=== PATIENT | female | born 1945 | race Caucasian/White ===

== ENCOUNTER → 2016-05-16 | Outpatient (CLI) | payer OTHER ==
[~2016-05-16] MED LIST: AMLO2.5T PO; ATOR-22 PO; ATR10 PO; BUPRTAB51 PO; CLON0.5T3 PO; DESV50TA2 PO; DXY100 PO; FERR1TAB23 PO; FERR325T5 PO; HYDR-3126 PO; LCTX PO; LEVO75TA PO; NXM/40 PO
--- NOTE | 2016-05-16 11:14 | DIAGNOSTIC IMAGING REPORT ---
GI SERIES W/O KUB CLINICAL HISTORY: Hiatal hernia. COMPARISON STUDY: None FLUOROSCOPY TIME: 1.7 minutes. FINDINGS: 24 fluoroscopic images were obtained and demonstrate a large sliding hiatal hernia. The gastric cardia, fundus and proximal body of the stomach are located above the diaphragm. There was mild esophageal dysmotility. No esophageal mass or stricture was identified. No reflux was elicited. Gastric fold pattern is grossly normal. Duodenum was normal. IMPRESSION: 1. Large sliding hiatal hernia with partially intrathoracic stomach. 2. Mild esophageal dysmotility. Electronically signed by: David Cosme M.D. 05/16/2016 11:13 AM Dictated Date/Time: 05/16/2016 11:07 AM
== END | disposition home or self-care (01) ==
LOC: C.RAD 10:25
PROVIDERS: ATTEND Internal Medicine Gastroenterology
DX: C18.3 Malignant neoplasm of hepatic flexure (principal); K44.9 Diaphragmatic hernia without obstruction or gangrene

== ENCOUNTER 2016-06-14 16:42 | Inpatient (IN) | payer OTHER ==
[~2016-06-14] VITALS: Ht 157.5 cm; Wt 88.2 kg
[2016-06-14] MEDS ORDERED: AMPICILLIN/SULBACTAM SOD INJ 3,000 MG in SODIUM CHLORIDE 0.9% 100ML 100 ML IV ONE (17:00)
--- NOTE | 2016-06-14 17:13 | EMERGENCY ROOM VISIT NOTE ---
History Report prepared by Tiana: Javed Gerber Under the Supervision of: Dr. Harrison Wood M.D. First contact with patient: 16:50 Chief Complaint: SWELLING TO EXTREMITY Stated Complaint: RT FOREARM CELLULITIS DUE TO DOG BITE History of Present Illness The patient is a 70 year old female who presents to the Emergency Room with complaints of a worsening right arm infection beginning yesterday. She states that her symptoms began immediately after she was bit by her daughter's dog. She notes that the dog was known to the patient, and was vaccinated. The patient denies any fevers or chills. She also complains of a headache. She states that she was seen at an acute care facility following the bite, and was place on Doxycycline. The patient's tetanus is up to date, and she received an injection yesterday. The patient's daughter notes that the infection has already been draining some pus. She also explains that the patient is unable to take Augmentin. The patient has a history of recently diagnosed colon cancer, and is scheduled for a bowel resection in about a month. Source of History: patient Onset: yesterday Position: arm (right) Quality: other (infection) Timing: worsening Associated Symptoms: + headache, No fevers Review of Systems See HPI for pertinent positives & negatives. A total of 10 systems reviewed and were otherwise negative. Past Medical & Surgical Medical Problems: (1) Anxiety (2) Cellulitis (3) Colon cancer (4) Depression (5) Dog bite (6) Hiatal hernia (7) HLD (hyperlipidemia) (8) HTN (hypertension) (9) Hypothyroid (10) LAKIA (iron deficiency anemia) (11) LUIZA on CPAP Surgical Problems: (1) H/O colonoscopy (2) H/O: hysterectomy (3) History of appendectomy (4) History of esophagogastroduodenoscopy (EGD) (5) History of repair of hiatal hernia Family History No pertinent family history stated. Social History Smoking Status: Never Smoker Current/Historical Medications Scheduled Amlodipine (Norvasc), 2.5 MG PO DAILY Atorvastatin (Lipitor), 20 MG PO DAILY Bupropion (Wellbutrin-Xl), 300 MG PO DAILY Clonazepam (Klonopin), 0.5-1 TAB PO QPM Desvenlafaxine Succinate (Pristiq), 50 MG PO DAILY Esomeprazole Magnesium (Nexium), 40 MG PO DAILY Ferrous Sulfate (Ferrous Sulfate), 325 MG PO DAILY Levothyroxine Sodium (Synthroid), 75 MCG PO DAILY Scheduled PRN Hydroxyzine Hcl (Atarax), 25 MG PO HS PRN for Itching Allergies Coded Allergies: Sulfa Antibiotics (Unverified Allergy, Severe, RASH, 06/14/16) Physical Exam Vital Signs Date Time Temp Pulse Resp B/P Pulse Ox O2 Delivery O2 Flow Rate FiO2 06/14/16 16:44 36.8 95 18 130/64 98 Physical Exam GENERAL: Patient is in no acute distress. HEENT: No acute trauma, normocephalic atraumatic, mucous membranes moist, no nasal congestion, no scleral icterus. NECK: No stridor, no adenopathy, no meningismus, trachea is midline. LUNGS: Clear to auscultation bilaterally, no wheeze, no rhonchi, breath sounds equal. HEART: 2/6 systolic murmur with a regular rate and rhythm. ABDOMEN: Soft, nontender, bowel sounds positive, no hernias, no peritonitis. EXTREMITIES: Cellulitis in the area of the right medial forearm extending from the elbow the wrist. Erythema and warmth to the area. Puncture wound to the proximal forearm consistent with a bite. No drainage. NEUROLOGIC: Oriented x 3, no acute motor or sensory deficits, no focal weakness. SKIN: No rash, no jaundice, no diaphoresis. Medical Decision & Procedures ER Provider Diagnostic Interpretation: X ray results and stated below per my interpretation and radiologist interpretation. Other radiology results and stated below per my review and radiologist interpretation: ULTRASOUND RIGHT UPPER EXTREMITY NONVASCULAR IMPRESSION: Soft tissue edema is present in the forearm. No organized fluid collection is seen to indicate abscess. Electronically signed by: Harrison Steel M.D. RIGHT FOREARM 2 VIEWS FINDINGS: AP and lateral views of the right forearm are obtained. No prior studies are available for comparison at the time of dictation. The skeletal structures are osteopenic. No fracture is seen. The wrist and elbow joints are grossly maintained. Diffuse soft tissue edema is present throughout the forearm. No radiodense foreign body is identified. IMPRESSION: 1. No acute bony abnormality is identified in the right forearm. 2. Diffuse soft tissue edema. No radiodense foreign body is identified as clinically queried. Electronically signed by: Harrison Vilbert, M.D. Laboratory Results 06/14/16 17:10 Red Blood Count 4.26, Mean Corpuscular Volume 79.6, Mean Corpuscular Hemoglobin 24.6, Mean Corpuscular Hemoglobin Concent 31.0, Mean Platelet Volume 9.4, Neutrophils (%) (Auto) 66.4, Lymphocytes (%) (Auto) 19.2, Monocytes (%) (Auto) 13.5, Eosinophils (%) (Auto) 0.5, Basophils (%) (Auto) 0.2, Neutrophils # (Auto ) 6.14, Lymphocytes # (Auto) 1.78, Monocytes # (Auto) 1.25, Eosinophils # (Auto ) 0.05, Basophils # (Auto) 0.02 06/14/16 17:10 Test 06/14/16 17:10 White Blood Count 9.26 K/uL (4.8-10.8) Red Blood Count 4.26 M/uL (4.2-5.4) Hemoglobin 10.5 g/dL (12.0-16.0) Hematocrit 33.9 % (37-47) Mean Corpuscular Volume 79.6 fL (80-100) Mean Corpuscular Hemoglobin 24.6 pg (25-34) Mean Corpuscular Hemoglobin Concent 31.0 g/dl (32-36) Platelet Count 309 K/uL (130-400) Mean Platelet Volume 9.4 fL (7.4-10.4) Neutrophils (%) (Auto) 66.4 % Lymphocytes (%) (Auto) 19.2 % Monocytes (%) (Auto) 13.5 % Eosinophils (%) (Auto) 0.5 % Basophils (%) (Auto) 0.2 % Neutrophils # (Auto) 6.14 K/uL (1.4-6.5) Lymphocytes # (Auto) 1.78 K/uL (1.2-3.4) Monocytes # (Auto) 1.25 K/uL (0.11-0.59) Eosinophils # (Auto) 0.05 K/uL (0-0.5) Basophils # (Auto) 0.02 K/uL (0-0.2) RDW Standard Deviation 65.9 fL (36.4-46.3) RDW Coefficient of Variation 22.6 % (11.5-14.5) Immature Granulocyte % (Auto) 0.2 % Immature Granulocyte # (Auto) 0.02 K/uL (0.00-0.02) Polychromasia 1+ Anisocytosis PRESENT Ovalocytes 1+ Anion Gap 11.0 mmol/L (3-11) Est Creatinine Clear Calc Drug Dose 55.1 ml/min Estimated GFR () 66.4 Estimated GFR (Non- 57.3 BUN/Creatinine Ratio 14.8 (10-20) Calcium Level 9.3 mg/dl (8.5-10.1) Laboratory results reviewed by me. Medications Administered Medications (Trade) Dose Ordered Sig/Radha Route Start Time Stop Time Status Last Admin Dose Admin Ampicillin Sodium/ Sulbactam Sodium/ Sodium Chloride (Unasyn Inj/Nss 100ml) 108 ml @ 200 mls/hr ONE ONCE IV 06/14/16 17:00 06/14/16 17:32 DC 06/14/16 17:55 200 MLS/HR ED Course 1652: The patient was evaluated in room B7. A complete history and physical exam was performed. 1700: Ordered Ampicillin Sodium / Sulbactam Sodium 3000 mg / Sodium Chloride 108 ml @ 200 mls/hr IV. 1759: Upon reexamination the patient is resting comfortably. I discussed results and treatment plan with the patient. She verbalizes agreement and understanding. The patient will be evaluated for further management. Medical Decision The patient is a 70 year old female who presents to the ED with complaints of a worsening right arm infection. Differential diagnoses considered include failed outpatient treatment, cellulitis, abscess, neurovascular compromise, retained tooth, as well as other etiologies were considered. There is no leukocytosis. There is an anemia present, the patient has a history of the same. No significant electrolyte abnormality or kidney failure. Right forearm film does not show any evidence for retained foreign body, I see no bony fracture. Right upper extremity ultrasound shows no evidence for localized abscess. On exam, there was no neurovascular compromise. The patient has a right arm dog bite cellulitis that has worsened despite antibiotics started yesterday. The organism is likely Pasteurella. The patient received IV Unasyn. I talked to her about options. She cannot take oral Augmentin. The arm has worsened since yesterday, she has failed outpatient treatment. Admission/observation is warranted. I spoke to the patient and case management. The on-call hospitalist was consulted. Consults Time Called: 1757 Consulting Physician: Rosa Osman Returned Call: [phone] Discussed the patient's case. The patient will be evaluated for further management. Impression Primary Impression: Right arm cellulitis Additional Impressions: Failure of outpatient treatment Dog bite Scribe Attestation The scribe's documentation has been prepared under my direction and personally reviewed by me in its entirety. I confirm that the note above accurately reflects all work, treatment, procedures, and medical decision making performed by me. Departure Information Dispostion Being Evaluated By Hospitalist Referrals Jadon Hutson M.D. (PCP) Patient Instructions My [facility] Problem Qualifiers
[2016-06-14] MEDS ORDERED: ATOR-22 PO (17:28)
[2016-06-14] MEDS ORDERED: ATR10 PO (17:28)
[2016-06-14] MEDS ORDERED: CLON0.5T3 PO (17:28)
[2016-06-14] MEDS ORDERED: LEVO75TA PO (17:28)
[2016-06-14] MEDS ORDERED: AMLO2.5T PO (17:28)
[2016-06-14] MEDS ORDERED: BUPRTAB51 PO (17:28)
[2016-06-14] MEDS ORDERED: FERR1TAB23 PO (17:28)
[2016-06-14] MEDS ORDERED: DESV50TA2 PO (17:28)
[2016-06-14] MEDS ORDERED: NXM/40 PO (17:28)
[2016-06-14 17:35] LABS: BASO % 0.2 %; BASO ABS # 0.02 K/uL (0-0.2); EOS % 0.5 %; HEMATOCRIT 33.9 % (37-47); IG% 0.2 %; LYMPH % 19.2 %; LYMPH ABS # 1.78 K/uL (1.2-3.4); MEAN CELL VOLUME 79.6 fL (80-100); MEAN CORPUSCULAR HEMOGLOBIN 24.6 pg (25-34); MEAN PLATELET VOLUME 9.4 fL (7.4-10.4); MONO % 13.5 %; NEUT % 66.4 %; PLATELET COUNT 309 K/uL (130-400); RED BLOOD COUNT 4.26 M/uL (4.2-5.4); WHITE BLOOD COUNT 9.26 K/uL (4.8-10.8)
[2016-06-14 17:39] LABS: BUN/CREATININE RATIO 14.8 (10-20); CALCIUM 9.3 mg/dl (8.5-10.1); CREATININE 0.99 mg/dl (0.60-1.20); POTASSIUM 3.7 mmol/L (3.5-5.1)
[2016-06-14 18:00] LABS: ANISOCYTOSIS PRESENT; COMPLETE YES; OVALOCYTES 1+; POLYCHROMASIA 1+
[2016-06-14] MEDS ORDERED: ACETAMINOPHEN 325 MG TAB PO PRN (18:30)
[2016-06-14] MEDS ORDERED: ONDANSETRON INJ 2 MG/ML 2 ML VIAL IV PRN (18:30)
--- NOTE | 2016-06-14 18:37 | DIAGNOSTIC IMAGING REPORT ---
RIGHT FOREARM 2 VIEWS CLINICAL HISTORY: Foreign body assessment. FINDINGS: AP and lateral views of the right forearm are obtained. No prior studies are available for comparison at the time of dictation. The skeletal structures are osteopenic. No fracture is seen. The wrist and elbow joints are grossly maintained. Diffuse soft tissue edema is present throughout the forearm. No radiodense foreign body is identified. IMPRESSION: 1. No acute bony abnormality is identified in the right forearm. 2. Diffuse soft tissue edema. No radiodense foreign body is identified as clinically queried. Electronically signed by: Harrison Steel M.D. 06/14/2016 6:36 PM Dictated Date/Time: 06/14/2016 6:35 PM
[2016-06-14] MEDS ORDERED: HYDROXYZINE HCL PO PRN (18:45)
[2016-06-14] MEDS ORDERED: KETOROLAC TROMETHAMINE 15 MG/ML VIAL IV. PRN (18:45)
--- NOTE | 2016-06-14 18:49 | History and Physical ---
History & Physical Date & Time of Service: Jun 14, 2016 at 18:37 Chief Complaint: Rt Forearm Cellulitis Due To Dog Bite Primary Care Physician: Jadon Hutson M.D. History of Present Illness Source: patient, family, hospital records Patient seen and examined. 70 year old female with PMHx of Active Colon CA, HLD , HTN, LUIZA, Hypothyroidism, Anxiety and Depression presents to the ED complaining of cellulitis following a dog bite yesterday of the right forearm. Patient reports it is her daughters dog and he is up to date on all of his shots. She states that yesterday she went to Urgent Care and was started on Doxycycline because Augmentin give her nausea. She reports this morning that her forearm was now red from wrist to elbow. She reports there has been copious purulent discharge from the puncture site so she came to the ED for further evaluation. She denies fevers, chills, URI symptoms, chest pain, SOB, nausea, vomiting, diarrhea, dysuria, calf pain and edema. She denies history of Diabetes. Patient is scheduled for colon CA resection at [facility] on 06/30. In the ED VS are stable, there is no leukocytosis. Blood cultures are drawn and patient is started on Unasyn. She will be admitted for further workup and treatment. Past Medical/Surgical History Medical Problems: (1) Anxiety Status: Chronic (2) Colon cancer Status: Chronic (3) Depression Status: Chronic (4) Hiatal hernia Status: Chronic (5) HLD (hyperlipidemia) Status: Chronic (6) HTN (hypertension) Status: Chronic (7) Hypothyroid Status: Chronic (8) LAKIA (iron deficiency anemia) Status: Chronic (9) LUIZA on CPAP Status: Chronic Surgical Problems: (1) H/O colonoscopy Status: Chronic (2) H/O: hysterectomy Status: Chronic (3) History of appendectomy Status: Chronic (4) History of esophagogastroduodenoscopy (EGD) Status: Chronic (5) History of repair of hiatal hernia Status: Chronic Family History Patient reports no known family medical history. Social History Smoking Status: Never Smoker Alcohol Use: none Housing status: lives with family Occupational Status: retired Allergies Coded Allergies: Sulfa Antibiotics (Unverified Allergy, Severe, RASH, 06/14/16) Home Medications Scheduled Amlodipine (Norvasc), 2.5 MG PO DAILY Atorvastatin (Lipitor), 20 MG PO DAILY Bupropion (Wellbutrin-Xl), 300 MG PO DAILY Clonazepam (Klonopin), 0.5-1 TAB PO QPM Desvenlafaxine Succinate (Pristiq), 50 MG PO DAILY Esomeprazole Magnesium (Nexium), 40 MG PO DAILY Ferrous Sulfate (Ferrous Sulfate), 325 MG PO DAILY Levothyroxine Sodium (Synthroid), 75 MCG PO DAILY Scheduled PRN Hydroxyzine Hcl (Atarax), 25 MG PO HS PRN for Itching Review of Systems Constitutional: No chills, No fever Eyes: No worsening of vision ENT: No nasal symptoms Respiratory: No cough, No shortness of breath Cardiovascular: No chest pain, No edema, No palpitations Abdomen: No constipation, No diarrhea, No nausea, No pain, No vomiting Musculoskeletal: No calf pain, No swelling Genitourinary - Female: No dysuria Neurologic: No numbness/tingling, No vertigo Psychiatric: No anxiety Endocrine: No fatigue Hematologic / Lymphatic: No abnormal bleeding/bruising, No clotting problems Integumentary: + new/changing skin lesions, + rash, No itch Allergic / Immunologic: No environmental allergies Physical Exam Vital Signs Date Time Temp Pulse Resp B/P Pulse Ox O2 Delivery O2 Flow Rate FiO2 06/14/16 16:44 36.8 95 18 130/64 98 General Appearance: + pertinent finding (Pleasant WD/WN 70 year old female lying in bed in NAD with daughter at bedside ) Head: normocephalic, atraumatic Eyes: PERRL, EOMI, sclerae normal ENT: hearing grossly normal, pharynx normal Neck: supple, no JVD Respiratory/Chest: chest non-tender, lungs clear, normal breath sounds, no respiratory distress, no accessory muscle use Cardiovascular: regular rate, rhythm, no edema, no gallop, no JVD, normal peripheral pulses, + systolic murmur Abdomen/GI: normal bowel sounds, non tender, soft Back: normal inspection, no muscle spasm Extremities/Musculoskelatal: no calf tenderness, normal capillary refill, no pedal edema Neurologic/Psych: alert, oriented x 3, + pertinent finding (no motor or sensory deficits noted on gross exam ) Skin: + pertinent finding (Erythema, and mild edema to right medial aspect of the forearm extending from wrist to elbow but not crossing joints, one puncture wound with scant purulent discharge ) Lymphatic: no adenopathy Diagnostics Laboratory Results Results Past 24 Hours Test 06/14/16 17:10 Range/Units White Blood Count 9.26 4.8-10.8 K/uL Red Blood Count 4.26 4.2-5.4 M/uL Hemoglobin 10.5 12.0-16.0 g/dL Hematocrit 33.9 37-47 % Mean Corpuscular Volume 79.6 80-100 fL Mean Corpuscular Hemoglobin 24.6 25-34 pg Mean Corpuscular Hemoglobin Concent 31.0 32-36 g/dl Platelet Count 309 130-400 K/uL Mean Platelet Volume 9.4 7.4-10.4 fL Neutrophils (%) (Auto) 66.4 % Lymphocytes (%) (Auto) 19.2 % Monocytes (%) (Auto) 13.5 % Eosinophils (%) (Auto) 0.5 % Basophils (%) (Auto) 0.2 % Neutrophils # (Auto) 6.14 1.4-6.5 K/uL Lymphocytes # (Auto) 1.78 1.2-3.4 K/uL Monocytes # (Auto) 1.25 0.11-0.59 K/uL Eosinophils # (Auto) 0.05 0-0.5 K/uL Basophils # (Auto) 0.02 0-0.2 K/uL RDW Standard Deviation 65.9 36.4-46.3 fL RDW Coefficient of Variation 22.6 11.5-14.5 % Immature Granulocyte % (Auto) 0.2 % Immature Granulocyte # (Auto) 0.02 0.00-0.02 K/uL Polychromasia 1+ Anisocytosis PRESENT Ovalocytes 1+ Sodium Level 142 136-145 mmol/L Potassium Level 3.7 3.5-5.1 mmol/L Chloride Level 109 98-107 mmol/L Carbon Dioxide Level 22 21-32 mmol/L Anion Gap 11.0 3-11 mmol/L Blood Urea Nitrogen 15 7-18 mg/dl Creatinine 0.99 0.60-1.20 mg/dl Est Creatinine Clear Calc Drug Dose 55.1 ml/min Estimated GFR () 66.4 Estimated GFR (Non- 57.3 BUN/Creatinine Ratio 14.8 10-20 Random Glucose 111 70-99 mg/dl Calcium Level 9.3 8.5-10.1 mg/dl Microbiology Results 06/14/16 Blood Culture, Received Pending 06/14/16 Blood Culture, Received Pending Diagnostic Radiology FOREARM XR Per radiologist read: IMPRESSION: 1. No acute bony abnormality is identified in the right forearm. 2. Diffuse soft tissue edema. No radiodense foreign body is identified as clinically queried. Impression Assessment and Plan 70 year old female presents to the ED complaining of worsening cellulitis following dog bite to right forearm. RIGHT FOREARM CELLULITIS SECONDARY TO DOG BITE -Admit to med/surg -No signs of sepsis, afebrile, no leukocytosis -Dog is daughter's dog and per daughter shots are up to date -Patient received Tetanus shot at Urgent Care yesterday -Does have h/o + MRSA swab -Blood cultures, wound cultures drawn -US pending to r/o abscess -Was started on Unasyn in ED for P. multocida coverage, will change to Daptomycin to cover for MRSA as well. -Tylenol, Toradol prn pain -CBC, PRP, Mg in AM IRON DEFICIENCY ANEMIA -secondary to Colon CA -Hgb 10.5 per family better than it had been -continue Iron supplement -follow H&H COLON CANCER -Scheduled for resection at [facility] on 06/30 HLD -hold statin while on Daptomycin HTN -stable -continue Amlodipine LUIZA -continue CPAP HYPOTHYROIDISM -continue Synthroid ANXIETY/DEPRESSION -continue Prestiq, Wellbutrin -Klonopin prn H/O MRSA -contact precautions -repeat MRSA nasal swab pending GERD -continue Nexium DVT PROPHYLAXIS: Sq lovenox CODE STATUS: FULL CODE DISPO:In my clinical judgment this beneficiary meets acute admission criteria, established by [facility], that includes being hospitalized through two midnights. Patient seen in collaboration with Dr. Kendall VTE Prophylaxis VTE Risk Assessment Done? Y/N: Yes Risk Level: Moderate Note ATTENDING ADDENDUM Record reviewed. Patient interviewed and examined. Care coordinated with Rosa Darnell PA-C. Please refer to her documentation for patient's history. Briefly, 70 YO female who suffered dog bite to right forearm yesterday. She was seen in an acute care facility, prescribed doxycycline, and given a tetanus booster. Increasing pain and swelling of right forearm today with purulent drainage from puncture site. No fever, chills. EXAM: General- no distress VS- as noted Extremities- puncture wound right forearm with purulent drainage; swelling and erythema of forearm, no proximal lymphangitis spread DATA: WBC 9260. Other lab studies as noted. X-ray right forearm- soft tissue swelling, no foreign body. US right forearm- no abscess. ASSESSMENT AND PLAN: Cellulitis right upper extremity secondary to dog bite. History of MRSA (nasal colonization). History of GI intolerance to amoxicillin / clavulanate. Does not appear to be septic. No apparent abscess or foreign body. Rx with IV daptomycin and ampicillin / sulbactam pending cultures results. Consult ID. Consider oral suspension when transitioning to oral antibiotic therapy due to history of hiatal hernia, s/p fundoplication. Please refer to CHRISTOPHER Darnell's documentation for discussion of other issues. Richie Kendall MD .
[2016-06-14] MEDS ORDERED: HYDR-3126 PO (18:52)
[2016-06-14] MEDS ORDERED: FERR325T5 PO (18:52)
[2016-06-14] MEDS ORDERED: hydrOXYzine HCL 25 MG TAB PO PRN (19:00)
--- NOTE | 2016-06-14 19:05 | DIAGNOSTIC IMAGING REPORT ---
ULTRASOUND RIGHT UPPER EXTREMITY NONVASCULAR CLINICAL HISTORY: Forearm infection. Dog bite injury. COMPARISON STUDY: Radiograph of the right forearm dated 06/14/16 TECHNIQUE: Real-time, grayscale, and color flow sonography of the soft tissues of the right forearm is performed at the indicated site of interest. Soft tissue edema is noted. No organized fluid collection is seen to indicate abscess. IMPRESSION: Soft tissue edema is present in the forearm. No organized fluid collection is seen to indicate abscess. Electronically signed by: Harrison Steel M.D. 06/14/2016 7:03 PM Dictated Date/Time: 06/14/2016 7:02 PM
[2016-06-14] MEDS ORDERED: DAPTOMYCIN CONSULT ACTIVE SCH ×2 (19:10)
[2016-06-14 19:54] LABS: PARTIAL THROMBOPLASTIN RATIO 1.2; PROTHROMBIN TIME (PATIENT) 10.5 SECONDS (9.0-12.0)
[2016-06-14 20:00] VITALS: BP 140/73; PULSE 79; TEMP 36.9; Ht 157.5 cm; Wt 88.2 kg
[2016-06-14] MEDS: DAPTOmycin IV 350 MG in SODIUM CHLORIDE 0.9% 50ML 50 ML IV SCH (20:18)
[2016-06-14] MEDS ORDERED: NURSING VERBAL MED ORDER ONE (21:30)
[2016-06-14] MEDS: BuPROPion XL 300 MG TABCR PO SCH (21:32)
[2016-06-14] MEDS: CLONAZEPAM 0.5 MG TAB PO SCH (21:33)
[2016-06-14] MEDS: ENOXAPARIN 40 MG/0.4 ML SYR SQ SCH (21:34)
[2016-06-14 22:24] VITALS: PULSE 82; O2SAT 98
[2016-06-14 23:00] VITALS: BP 104/62; PULSE 79; TEMP 36.6; O2SAT 93
[2016-06-15] MEDS: AMPICILLIN/SULBACTAM SOD INJ 3,000 MG in SODIUM CHLORIDE 0.9% 100ML 100 ML IV SCH ×4 (01:08→18:42)
[2016-06-15] MEDS: LEVOTHYROXINE 75 MCG TAB PO SCH (06:21)
[2016-06-15 06:23] LABS: HEMATOCRIT 29.9 % (37-47); MEAN CELL VOLUME 79.7 fL (80-100); MEAN CORPUSCULAR HEMOGLOBIN 24.3 pg (25-34); MEAN CORPUSCULAR HGB CONC 30.4 g/dl (32-36); MEAN PLATELET VOLUME 9.7 fL (7.4-10.4); PLATELET COUNT 266 K/uL (130-400); RED BLOOD COUNT 3.75 M/uL (4.2-5.4); WHITE BLOOD COUNT 7.27 K/uL (4.8-10.8)
[2016-06-15 06:52] LABS: BUN/CREATININE RATIO 17.2 (10-20); CREATININE 0.78 mg/dl (0.60-1.20); MAGNESIUM 2.3 mg/dl (1.8-2.4); POTASSIUM 3.7 mmol/L (3.5-5.1)
[2016-06-15] MEDS: PANTOprazole SOD 40 MG TAB PO SCH (07:36)
[2016-06-15] MEDS: FERROUS SULFATE 325 MG TAB PO SCH (07:37)
[2016-06-15] MEDS: AMLODIPINE BESYLATE 5 MG TAB PO SCH (07:38)
[2016-06-15 08:21] VITALS: BP 100/60; PULSE 82; TEMP 36.4; O2SAT 97
[2016-06-15] MEDS ORDERED: ATORVASTATIN 20 MG TAB PO SCH (09:00)
[2016-06-15] MEDS ORDERED: BuPROPion XL 300 MG TABCR PO SCH (09:00)
[2016-06-15] MEDS ORDERED: FERROUS SULFATE PO SCH (09:00)
--- NOTE | 2016-06-15 12:49 | Progress Note ---
Internal Med Progress Note Date of Service: Jun 15, 2016. Provider Documentation: SUBJECTIVE: The patient was seen and examined Right Forearm swelling and redness is better No fever,chills or rigors OBJECTIVE: Vital Signs-as noted below Exam: General-No distress Eyes-normal ENT-normal Neck-Supple Lungs-Clear to ausucltate bilaterally Heart-Regular Abdomen-Benign,no masses, Extremities-No edema in legs Right Forearm is swollen Bite astrid over the Flexor aspect Adjoining redness Neuro-AAOx3 Lab data as noted below. ASSESSMENT & PLAN: RIGHT FOREARM CELLULITIS SECONDARY TO DOG BITE -No signs of sepsis, afebrile, no leukocytosis -Dog is Immunized -Patient received Tetanus shot at Urgent Care yesterday -Does have h/o + MRSA swab -Blood cultures, wound cultures -pending -US pending to r/o abscess-no abscess -Was started on Unasyn in ED for P. multocida coverage, will change to Daptomycin to cover for MRSA as well. -Tylenol, Toradol prn pain -can not take Augmentin -ID consulted IRON DEFICIENCY ANEMIA -secondary to Colon CA -Hgb 10.5 per family better than it had been COLON CANCER -Scheduled for resection at [facility] on 06/30 HLD -hold statin while on Daptomycin HTN -stable -continue Amlodipine LUIZA -continue CPAP -no acute issue HYPOTHYROIDISM -continue Synthroid ANXIETY/DEPRESSION -continue Prestiq, Wellbutrin -Klonopin prn -no acute issue GERD -continue Nexium DVT PROPHYLAXIS: Sq lovenox CODE STATUS: FULL CODE DISPO: Awaited Vital Signs: Date Time Temp Pulse Resp B/P Pulse Ox O2 Delivery O2 Flow Rate FiO2 06/15/16 08:21 36.4 82 18 100/60 97 Room Air 06/15/16 00:00 Room Air 06/14/16 23:00 36.6 79 18 104/62 93 BiPAP 06/14/16 22:24 82 98 21 06/14/16 20:00 Room Air 06/14/16 20:00 36.9 79 18 140/73 Room Air 06/14/16 19:22 75 18 117/66 98 Room Air 06/14/16 16:44 36.8 95 18 130/64 98 Lab Results: Results Past 24 Hours Test 06/14/16 17:10 06/15/16 05:23 Range/Units White Blood Count 9.26 7.27 4.8-10.8 K/uL Red Blood Count 4.26 3.75 4.2-5.4 M/uL Hemoglobin 10.5 9.1 12.0-16.0 g/dL Hematocrit 33.9 29.9 37-47 % Mean Corpuscular Volume 79.6 79.7 80-100 fL Mean Corpuscular Hemoglobin 24.6 24.3 25-34 pg Mean Corpuscular Hemoglobin Concent 31.0 30.4 32-36 g/dl Platelet Count 309 266 130-400 K/uL Mean Platelet Volume 9.4 9.7 7.4-10.4 fL Neutrophils (%) (Auto) 66.4 % Lymphocytes (%) (Auto) 19.2 % Monocytes (%) (Auto) 13.5 % Eosinophils (%) (Auto) 0.5 % Basophils (%) (Auto) 0.2 % Neutrophils # (Auto) 6.14 1.4-6.5 K/uL Lymphocytes # (Auto) 1.78 1.2-3.4 K/uL Monocytes # (Auto) 1.25 0.11-0.59 K/uL Eosinophils # (Auto) 0.05 0-0.5 K/uL Basophils # (Auto) 0.02 0-0.2 K/uL RDW Standard Deviation 65.9 66.1 36.4-46.3 fL RDW Coefficient of Variation 22.6 22.4 11.5-14.5 % Immature Granulocyte % (Auto) 0.2 % Immature Granulocyte # (Auto) 0.02 0.00-0.02 K/uL Polychromasia 1+ Anisocytosis PRESENT Ovalocytes 1+ Prothrombin Time 10.5 9.0-12.0 SECONDS Prothromb Time International Ratio 1.0 0.9-1.1 Activated Partial Thromboplast Time 29.9 21.0-31.0 SECONDS Partial Thromboplastin Ratio 1.2 Sodium Level 142 146 136-145 mmol/L Potassium Level 3.7 3.7 3.5-5.1 mmol/L Chloride Level 109 112 98-107 mmol/L Carbon Dioxide Level 22 24 21-32 mmol/L Anion Gap 11.0 10.0 3-11 mmol/L Blood Urea Nitrogen 15 13 7-18 mg/dl Creatinine 0.99 0.78 0.60-1.20 mg/dl Est Creatinine Clear Calc Drug Dose 55.1 68.5 ml/min Estimated GFR () 66.4 88.6 Estimated GFR (Non- 57.3 76.5 BUN/Creatinine Ratio 14.8 17.2 10-20 Random Glucose 111 98 70-99 mg/dl Calcium Level 9.3 9.0 8.5-10.1 mg/dl Magnesium Level 2.3 1.8-2.4 mg/dl Microbiology Results 06/14/16 Blood Culture, Received Pending 06/14/16 Blood Culture, Received Pending 06/14/16 MRSA DNA Surveillance Screen - Final, Complete Specimen Positive for MRSA by DNA Probe 06/14/16 Gram Stain - Final, Resulted 06/14/16 Wound Culture - Preliminary, Resulted Gram Negative Bacilli
--- NOTE | 2016-06-15 12:52 | Progress Note ---
Progress Note ID Consult Dictated #[id number] A/P: 1. dog bite cellulitis -Continue iv abx for now, gnr on gram stain, if no gpc tomorrow, will stop dapto -follow culture -will follow, thank you
[2016-06-15] MEDS: CLONAZEPAM 0.5 MG TAB PO SCH (20:39)
[2016-06-15] MEDS: DAPTOmycin IV 350 MG in SODIUM CHLORIDE 0.9% 50ML 50 ML IV SCH (20:40)
[2016-06-15] MEDS: BuPROPion XL 300 MG TABCR PO SCH (20:40)
[2016-06-15] MEDS: ENOXAPARIN 40 MG/0.4 ML SYR SQ SCH (20:41)
[2016-06-15 21:43] VITALS: PULSE 81; O2SAT 98
[2016-06-15 22:48] VITALS: BP 117/67; PULSE 83; TEMP 37; O2SAT 94
[2016-06-16] MEDS: AMPICILLIN/SULBACTAM SOD INJ 3,000 MG in SODIUM CHLORIDE 0.9% 100ML 100 ML IV SCH ×4 (01:45→19:11)
--- NOTE | 2016-06-16 01:45 | INFECT. DISEASE CONSULTATION ---
DATE OF CONSULTATION: 06/15/2016 REQUESTING PHYSICIAN: Bam Mitchell MD HISTORY OF PRESENT ILLNESS: This is a 70-year-old female who was admitted after she was bitten by her daughter's dog on Thursday. She states the dog is up-to-date with all vaccinations. She was seen at an urgent care center and placed on Augmentin. She had significant nausea with this and then transitioned to doxycycline. On Thursday, the wound was worsened and her daughter was able to express some purulent fluid. For this reason, she was referred to the Emergency Room and subsequently admitted. She is on intravenous antibiotics with daptomycin and Unasyn. She is tolerating IV antibiotics well. She denies any fevers or chills at home. She states she had significant pain and erythema between her wrist and elbow; however, this has significantly improved since admission to the hospital. She has been afebrile without leukocytosis since admission. Her blood cultures and wound cultures were obtained. The wound culture is growing a gram negative britt. Blood cultures are pending. MRSA screen was positive and she is in isolation for this. She remains afebrile. She denies any nausea, vomiting, diarrhea or abdominal pain. She is eating well. She denies any fevers or chills. She denies any cough, chest pain or shortness of breath. All remaining review of systems are reviewed and are negative except for as noted above. PAST MEDICAL HISTORY: Significant for anxiety, recently diagnosed colon cancer, depression, hiatal hernia, hyperlipidemia, hypertension, hypothyroidism, iron deficiency anemia, obstructive sleep apnea on CPAP. PAST SURGICAL HISTORY: Significant for colonoscopy, hysterectomy, appendectomy, EGD, and repair of hiatal hernia. FAMILY HISTORY: Noncontributory. SOCIAL HISTORY: Negative for tobacco use, alcohol use or drug use. She lives at home with family. ALLERGIES: SULFA ANTIBIOTICS. CURRENT MEDICATIONS: Include Wellbutrin, Norvasc, Protonix, iron, Synthroid, Unasyn, Lovenox, Klonopin, daptomycin, Vistaril, Toradol, Tylenol, Zofran. PHYSICAL EXAMINATION: VITAL SIGNS: She is afebrile, pulse 82, respiratory rate 18, blood pressure 100/60, oxygen saturation is 97%. GENERAL: She is awake, alert and oriented x3. She is in no acute distress. HEENT: Mucous membranes are moist. Extraocular muscles are intact. HEART: Regular. LUNGS: Clear bilaterally. ABDOMEN: Soft, nontender, nondistended. EXTREMITIES: There is no lower extremity edema bilaterally. SKIN: Without rash. Examination of the right forearm reveals a 1 x 1 cm pustule. There is no surrounding induration. There is some erythema and warmth. I am unable to express any bleeding or drainage. The erythema has decreased significantly from in the Emergency Room. LABORATORY STUDIES: CBC today reveals a white blood cell count of 7.2, hemoglobin 9.1, hematocrit 29.9 and platelets are 266. Chemistry panel reveals a sodium of 146, potassium 3.7, chloride 112, bicarbonate 24, BUN 13, creatinine 0.7, glucose is 98. Micro is as reviewed previously. She did have an ultrasound of her forearm which showed soft tissue edema and no abscess. ASSESSMENT AND PLAN: Dog bite cellulitis. Gram negative rods on the wound culture. At this time, she will be continued on her current antibiotics and will be maintained IV. I will await the final ID of gram negative britt and adjust the antibiotics accordingly. We will follow along with you. Thank you for this consultation. EVAN
[2016-06-16] MEDS: LEVOTHYROXINE 75 MCG TAB PO SCH (05:56)
[2016-06-16] MEDS: DESVENLAFAXINE SUCCINATE 50 MG TABCR PO SCH (07:55)
[2016-06-16 07:56] VITALS: BP_SYST 120; BP_SYST 160; BP_DIAS 102; BP_DIAS 75; PULSE 79; PULSE 84; TEMP 36.4; O2SAT 97; O2SAT 98
[2016-06-16] MEDS: FERROUS SULFATE 325 MG TAB PO SCH (07:56)
[2016-06-16] MEDS: AMLODIPINE BESYLATE 5 MG TAB PO SCH (07:56)
[2016-06-16] MEDS: PANTOprazole SOD 40 MG TAB PO SCH (07:57)
[2016-06-16 08:02] VITALS: O2SAT 97
--- NOTE | 2016-06-16 11:50 | Progress Note ---
Internal Med Progress Note Date of Service: Jun 16, 2016. Provider Documentation: SUBJECTIVE: The patient was seen and examined Right Forearm swelling and redness is much better No fever,chills or rigors OBJECTIVE: Vital Signs-as noted below Exam: General-No distress at rest Eyes-normal ENT-normal Neck-Supple Lungs-Clear to ausucltate bilaterally Heart-Regular Abdomen-Benign,no masses, Extremities-No edema in legs Right Forearm is swollen Bite astrid over the Flexor aspect Adjoining redness and lumpiness No Fluctuation Neuro-AAOx3 Lab data as noted below. ASSESSMENT & PLAN: RIGHT FOREARM CELLULITIS SECONDARY TO DOG BITE -No signs of sepsis, afebrile, no leukocytosis -Dog is Immunized -Patient received Tetanus shot at Urgent Care yesterday -Does have h/o + MRSA swab -MRSA screen is positive -US pending to r/o abscess-no abscess -Was started on Unasyn in ED for P. multocida coverage, will change to Daptomycin to cover for MRSA as well. -Tylenol, Toradol prn pain -can not take Augmentin -ID consulted-appreciate inp[ut --Blood cultures-negative, wound cultures -Gm negative spp-identification and sensitivity pending -continue current medications IRON DEFICIENCY ANEMIA -secondary to Colon CA -Hgb 10.5 per family better than it had been COLON CANCER -Scheduled for [place] [facility] [place] HLD -hold statin while on Daptomycin HTN -stable -continue Amlodipine LUIZA -continue CPAP -no acute issue HYPOTHYROIDISM -continue Synthroid ANXIETY/DEPRESSION -continue Prestiq, Wellbutrin -Klonopin prn -no acute issue GERD -continue Nexium DVT PROPHYLAXIS: Sq lovenox CODE STATUS: FULL CODE DISPO: Await culture sensitivity Vital Signs: Date Time Temp Pulse Resp B/P Pulse Ox O2 Delivery O2 Flow Rate FiO2 06/16/16 08:02 97 Room Air 06/16/16 08:00 Room Air 06/16/16 07:56 36.4 79 14 120/75 97 Room Air 06/16/16 00:05 Room Air 06/15/16 22:48 37.0 83 18 117/67 94 Room Air 06/15/16 21:43 81 98 BiPAP 21 06/15/16 21:43 81 98 21 06/15/16 20:05 Room Air 06/15/16 16:00 Room Air
--- NOTE | 2016-06-16 14:38 | Progress Note ---
Subjective Date of Service: Jun 16, 2016. Subjective pt wound culture with rare gpc and mod gnr on gram stain, gnr ID pending. afebrile. tolerating IV abx. did not tolerated po augmentin secondary to nausea. blood cultures negative, no new labs. no events overnight. Problem List Medical Problems: (1) Failure of outpatient treatment Status: Acute (2) Right arm cellulitis Status: Acute Objective Vital Signs Date Time Temp Pulse Resp B/P Pulse Ox O2 Delivery O2 Flow Rate FiO2 06/16/16 08:02 97 Room Air 06/16/16 08:00 Room Air 06/16/16 07:56 36.4 79 14 120/75 97 Room Air 06/16/16 00:05 Room Air 06/15/16 22:48 37.0 83 18 117/67 94 Room Air 06/15/16 21:43 81 98 BiPAP 21 06/15/16 21:43 81 98 21 06/15/16 20:05 Room Air 06/15/16 16:00 Room Air Laboratory Results Item Value Date Time Gram Stain - Final Resulted 06/14/161911 Skin Arm , Right Lower Blood Culture - Preliminary Resulted 06/14/16 1731 Blood NO GROWTH TO DATE. Blood Culture - Preliminary Resulted 06/14/16 1711 Blood NO GROWTH TO DATE. Gram Stain - Final Resulted 06/14/161911 Skin Arm , Right Lower Assessment and Plan (1) Cellulitis Assessment & Plan: continue current abx, follow cultures and await final ID/ sensitivities. continue local care to wound. tetanus if not done in last 10 years. final abx recs will depend on cultured data, will follow. (2) Dog bite
[2016-06-16] MEDS: DAPTOmycin IV 350 MG in SODIUM CHLORIDE 0.9% 50ML 50 ML IV SCH (20:13)
[2016-06-16] MEDS: BuPROPion XL 300 MG TABCR PO SCH (20:13)
[2016-06-16] MEDS: CLONAZEPAM 0.5 MG TAB PO SCH (20:13)
[2016-06-16] MEDS: ENOXAPARIN 40 MG/0.4 ML SYR SQ SCH (20:14)
[2016-06-16 22:00] VITALS: PULSE 79; O2SAT 97
[2016-06-16 23:08] VITALS: BP 107/61; PULSE 74; TEMP 36.9; O2SAT 97
[2016-06-17] VITALS: O2SAT 97
[2016-06-17] MEDS: AMPICILLIN/SULBACTAM SOD INJ 3,000 MG in SODIUM CHLORIDE 0.9% 100ML 100 ML IV SCH ×2 (00:42→06:24)
[2016-06-17 05:28] LABS: HEMATOCRIT 30.7 % (37-47); MEAN CELL VOLUME 78.5 fL (80-100); MEAN CORPUSCULAR HEMOGLOBIN 24.3 pg (25-34); MEAN CORPUSCULAR HGB CONC 30.9 g/dl (32-36); MEAN PLATELET VOLUME 8.9 fL (7.4-10.4); PLATELET COUNT 246 K/uL (130-400); RED BLOOD COUNT 3.91 M/uL (4.2-5.4); WHITE BLOOD COUNT 6.25 K/uL (4.8-10.8)
[2016-06-17 06:00] LABS: CREATININE 0.79 mg/dl (0.60-1.20)
[2016-06-17] MEDS: LEVOTHYROXINE 75 MCG TAB PO SCH (06:22)
[2016-06-17] MEDS: AMLODIPINE BESYLATE 5 MG TAB PO SCH (07:32)
[2016-06-17] MEDS: FERROUS SULFATE 325 MG TAB PO SCH (07:33)
[2016-06-17] MEDS: PANTOprazole SOD 40 MG TAB PO SCH (07:34)
[2016-06-17] MEDS: DESVENLAFAXINE SUCCINATE 50 MG TABCR PO SCH (07:34)
[2016-06-17 07:36] VITALS: BP 120/70; PULSE 83; TEMP 36.4; O2SAT 95
--- NOTE | 2016-06-17 09:39 | Progress Note ---
Internal Med Progress Note Date of Service: Jun 17, 2016. Provider Documentation: SUBJECTIVE: The patient was seen and examined Right Forearm swelling and redness is much better Draining small amount of Puss from the wound Induration of the adjoining area OBJECTIVE: Vital Signs-as noted below Exam: General-No distress at rest Eyes-normal ENT-normal Neck-Supple Lungs-Clear to ausucltate bilaterally Heart-Regular Abdomen-Benign,no masses, Extremities-No edema in legs Right Forearm is swollen Bite astrid over the Flexor aspect Draining small amount of Puss from the wound Induration of the adjoining area No Fluctuation Neuro-AAOx3 Lab data as noted below. ASSESSMENT & PLAN: RIGHT FOREARM CELLULITIS SECONDARY TO DOG BITE -No signs of sepsis, afebrile, no leukocytosis -Dog is Immunized -Patient received Tetanus shot at Urgent Care yesterday -Does have h/o + MRSA swab -MRSA screen is positive -US -no abscess -Was started on Unasyn in ED for P. multocida coverage, will change to Daptomycin to cover for MRSA as well. 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 -continue current medications -Await ID input for possible transition to oral -Draining small amount of Puss from the wound -Induration of the adjoining area but no fluctuation IRON DEFICIENCY ANEMIA -secondary to Colon CA -Hgb 10.5 per family better than it had been COLON CANCER -Scheduled for resection at [facility] [place] on 06/30 HLD -hold statin while on Daptomycin HTN -stable -continue Amlodipine LUIZA -continue CPAP -no acute issue HYPOTHYROIDISM -continue Synthroid ANXIETY/DEPRESSION -continue Prestiq, Wellbutrin -Klonopin prn -no acute issue GERD -continue Nexium DVT PROPHYLAXIS: Sq lovenox CODE STATUS: FULL CODE DISPO: Await culture sensitivity will discuss with the ID fro possible oral transition today Vital Signs: Date Time Temp Pulse Resp B/P Pulse Ox O2 Delivery O2 Flow Rate FiO2 06/17/16 07:36 36.4 83 18 120/70 95 06/17/16 00:00 97 Room Air 21 CPAP 06/16/16 23:08 36.9 74 18 107/61 97 2/13/17 22:00 79 97 21 06/16/16 20:00 Room Air 06/16/16 16:00 Room Air Lab Results: Results Past 24 Hours Test 06/17/16 05:10 Range/Units White Blood Count 6.25 4.8-10.8 K/uL Red Blood Count 3.91 4.2-5.4 M/uL Hemoglobin 9.5 12.0-16.0 g/dL Hematocrit 30.7 37-47 % Mean Corpuscular Volume 78.5 80-100 fL Mean Corpuscular Hemoglobin 24.3 25-34 pg Mean Corpuscular Hemoglobin Concent 30.9 32-36 g/dl RDW Standard Deviation 63.0 36.4-46.3 fL RDW Coefficient of Variation 22.0 11.5-14.5 % Platelet Count 246 130-400 K/uL Mean Platelet Volume 8.9 7.4-10.4 fL Creatinine 0.79 0.60-1.20 mg/dl Est Creatinine Clear Calc Drug Dose 67.4 ml/min Estimated GFR () 87.3 Estimated GFR (Non- 75.3
[2016-06-17] MEDS ORDERED: LCTX PO (10:02)
[2016-06-17] MEDS ORDERED: DXY100 PO (10:02)
--- NOTE | 2016-06-17 10:04 | Discharge Instructions ---
Discharge Instructions Admission Reason for Admission: Cellulitis,Dog Bite Discharge Discharge Diagnosis / Problem: Cellulitis right Forearm,Dogbite Discharge Goals Goal(s): Prevent Disease Progression Activity Recommendations Activity Limitations: resume your previous activity . Instructions / Follow-Up Instructions / Follow-Up Please make an appointment with your PCP in 1 week. Current Hospital Diet Patient's current hospital diet: AHA Diet (Heart Healthy) Discharge Diet Recommended Diet: Regular Diet Pending Studies Studies pending at discharge: no Medical Emergencies . Who to Call and When: Medical Emergencies: If at any time you feel your situation is an emergency, please call 911 immediately. . Non-Emergent Contact Non-Emergency issues call your: Primary Care Provider . . "Provider Documentation" section prepared by Bam Mitchell. VTE Core Measure Inpt VTE Proph given/why not?: Enoxaparin (Lovenox)SQ
--- NOTE | 2016-06-17 10:19 | Discharge Summary ---
Discharge Summary Admission Date: Jun 14, 2016 at 18:04 Discharge Date: Jun 17, 2016 Discharge Disposition: Home Principal Diagnosis: Cellulitis right Forearm,Dog bite Secondary Diagnoses/Problems: Please see H&P Consultations: ID Medication Reconciliation New Medications: Doxycycline Hyclate (Doxycycline Hyclate) 100 Mg Cap 100 MG PO BID for 10 Days, #20 Lactobacillus Acidophilus (Lactinex) Tab 2 TAB PO BID, #40 TAB Continued Medications: Amlodipine (Norvasc) 2.5 Mg Tab 2.5 MG PO DAILY Atorvastatin (Lipitor) 20 Mg Tab 20 MG PO DAILY Bupropion (Wellbutrin-Xl) 300 Mg Tabcr 300 MG PO DAILY Clonazepam (Klonopin) 0.5 Mg Tab 0.5-1 TAB PO QPM Desvenlafaxine Succinate (Pristiq) 50 Mg Tab 50 MG PO DAILY Esomeprazole Magnesium (Nexium) 40 Mg Capcr 40 MG PO DAILY Ferrous Sulfate (Ferrous Sulfate) 325 Mg Tab 325 MG PO DAILY Hydroxyzine Hcl (Atarax) 50 Mg Tab 25 MG PO HS PRN for Itching for 30 Days, TAB 2 Refills Levothyroxine Sodium (Synthroid) 75 Mcg Tab 75 MCG PO DAILY Admission Information HPI (per Admitting provider): Patient seen and examined. 70 year old female with PMHx of Active Colon CA, HLD , HTN, LUIZA, Hypothyroidism, Anxiety and Depression presents to the ED complaining of cellulitis following a dog bite yesterday of the right forearm. Patient reports it is her daughters dog and he is up to date on all of his shots. She states that yesterday she went to Urgent Care and was started on Doxycycline because Augmentin give her nausea. She reports this morning that her forearm was now red from wrist to elbow. She reports there has been copious purulent discharge from the puncture site so she came to the ED for further evaluation. She denies fevers, chills, URI symptoms, chest pain, SOB, nausea, vomiting, diarrhea, dysuria, calf pain and edema. She denies history of Diabetes. Patient is scheduled for colon CA resection at [facility] on [place]. In the ED VS are stable, there is no leukocytosis. Blood cultures are drawn and patient is started on Unasyn. She will be admitted for further workup and treatment. Past Medical/Surgical History Medical Problems: (1) Anxiety Status: Chronic (2) Colon cancer Status: Chronic (3) Depression Status: Chronic (4) Hiatal hernia Status: Chronic (5) HLD (hyperlipidemia) Status: Chronic (6) HTN (hypertension) Status: Chronic (7) Hypothyroid Status: Chronic (8) LAKIA (iron deficiency anemia) Status: Chronic (9) LUIZA on CPAP Status: Chronic Surgical Problems: (1) H/O colonoscopy Status: Chronic (2) H/O: hysterectomy Status: Chronic (3) History of appendectomy Status: Chronic (4) History of esophagogastroduodenoscopy (EGD) Status: Chronic (5) History of repair of hiatal hernia Status: Chronic Family History Patient reports no known family medical history. Social History Smoking Status: Never Smoker Alcohol Use: none Housing status: lives with family Occupational Status: retired Allergies Coded Allergies: Sulfa Antibiotics (Unverified Allergy, Severe, RASH, 06/14/16) Home Medications Scheduled Amlodipine (Norvasc), 2.5 MG PO DAILY Atorvastatin (Lipitor), 20 MG PO DAILY Bupropion (Wellbutrin-Xl), 300 MG PO DAILY Clonazepam (Klonopin), 0.5-1 TAB PO QPM Desvenlafaxine Succinate (Pristiq), 50 MG PO DAILY Esomeprazole Magnesium (Nexium), 40 MG PO DAILY Ferrous Sulfate (Ferrous Sulfate), 325 MG PO DAILY Levothyroxine Sodium (Synthroid), 75 MCG PO DAILY Scheduled PRN Hydroxyzine Hcl (Atarax), 25 MG PO HS PRN for Itching Review of Systems Constitutional: No chills, No fever Eyes: No worsening of vision ENT: No nasal symptoms Respiratory: No cough, No shortness of breath Cardiovascular: No chest pain, No edema, No palpitations Abdomen: No constipation, No diarrhea, No nausea, No pain, No vomiting Musculoskeletal: No calf pain, No swelling Genitourinary - Female: No dysuria Neurologic: No numbness/tingling, No vertigo Psychiatric: No anxiety Endocrine: No fatigue Hematologic / Lymphatic: No abnormal bleeding/bruising, No clotting problems Integumentary: + new/changing skin lesions, + rash, No itch Allergic / Immunologic: No environmental allergies Physical Ex - H&P Physical Exam Vital Signs Date Time Temp Pulse Resp B/P Pulse Ox O2 Delivery O2 Flow Rate FiO2 06/14/16 16:44 36.8 95 18 130/64 98 General Appearance: + pertinent finding (Pleasant WD/WN 70 year old female lying in bed in NAD with daughter at bedside ) Head: normocephalic, atraumatic Eyes: PERRL, EOMI, sclerae normal ENT: hearing grossly normal, pharynx normal Neck: supple, no JVD Respiratory/Chest: chest non-tender, lungs clear, normal breath sounds, no respiratory distress, no accessory muscle use Cardiovascular: regular rate, rhythm, no edema, no gallop, no JVD, normal peripheral pulses, + systolic murmur Abdomen/GI: normal bowel sounds, non tender, soft Back: normal inspection, no muscle spasm Extremities/Musculoskelatal: no calf tenderness, normal capillary refill, no pedal edema Neurologic/Psych: alert, oriented x 3, + pertinent finding (no motor or sensory deficits noted on gross exam ) Skin: + pertinent finding (Erythema, and mild edema to right medial aspect of the forearm extending from wrist to elbow but not crossing joints, one puncture wound with scant purulent discharge ) Lymphatic: no adenopathy Diagnostics - H&P Diagnostics Laboratory Results Results Past 24 Hours Test 06/14/16 17:10 Range/Units White Blood Count 9.26 4.8-10.8 K/uL Red Blood Count 4.26 4.2-5.4 M/uL Hemoglobin 10.5 12.0-16.0 g/dL Hematocrit 33.9 37-47 % Mean Corpuscular Volume 79.6 80-100 fL Mean Corpuscular Hemoglobin 24.6 25-34 pg Mean Corpuscular Hemoglobin Concent 31.0 32-36 g/dl Platelet Count 309 130-400 K/uL Mean Platelet Volume 9.4 7.4-10.4 fL Neutrophils (%) (Auto) 66.4 % Lymphocytes (%) (Auto) 19.2 % Monocytes (%) (Auto) 13.5 % Eosinophils (%) (Auto) 0.5 % Basophils (%) (Auto) 0.2 % Neutrophils # (Auto) 6.14 1.4-6.5 K/uL Lymphocytes # (Auto) 1.78 1.2-3.4 K/uL Monocytes # (Auto) 1.25 0.11-0.59 K/uL Eosinophils # (Auto) 0.05 0-0.5 K/uL Basophils # (Auto) 0.02 0-0.2 K/uL RDW Standard Deviation 65.9 36.4-46.3 fL RDW Coefficient of Variation 22.6 11.5-14.5 % Immature Granulocyte % (Auto) 0.2 % Immature Granulocyte # (Auto) 0.02 0.00-0.02 K/uL Polychromasia 1+ Anisocytosis PRESENT Ovalocytes 1+ Sodium Level 142 136-145 mmol/L Potassium Level 3.7 3.5-5.1 mmol/L Chloride Level 109 98-107 mmol/L Carbon Dioxide Level 22 21-32 mmol/L Anion Gap 11.0 3-11 mmol/L Blood Urea Nitrogen 15 7-18 mg/dl Creatinine 0.99 0.60-1.20 mg/dl Est Creatinine Clear Calc Drug Dose 55.1 ml/min Estimated GFR () 66.4 Estimated GFR (Non- 57.3 BUN/Creatinine Ratio 14.8 10-20 Random Glucose 111 70-99 mg/dl Calcium Level 9.3 8.5-10.1 mg/dl Microbiology Results 06/14/16 Blood Culture, Received Pending 06/14/16 Blood Culture, Received Pending Diagnostic Radiology FOREARM XR Per radiologist read: IMPRESSION: 1. No acute bony abnormality is identified in the right forearm. 2. Diffuse soft tissue edema. No radiodense foreign body is identified as clinically queried. Impression - H&P Impression Assessment and Plan 70 year old female presents to the ED complaining of worsening cellulitis following dog bite to right forearm. RIGHT FOREARM CELLULITIS SECONDARY TO DOG BITE -Admit to med/surg -No signs of sepsis, afebrile, no leukocytosis -Dog is daughter's dog and per daughter shots are up to date -Patient received Tetanus shot at Urgent Care yesterday -Does have h/o + MRSA swab -Blood cultures, wound cultures drawn -US pending to r/o abscess -Was started on Unasyn in ED for P. multocida coverage, will change to Daptomycin to cover for MRSA as well. -Tylenol, Toradol prn pain -CBC, PRP, Mg in AM IRON DEFICIENCY ANEMIA -secondary to Colon CA -Hgb 10.5 per family better than it had been -continue Iron supplement -follow H&H COLON CANCER -Scheduled for resection at [facility] on 06/30 HLD -hold statin while on Daptomycin HTN -stable -continue Amlodipine LUIZA -continue CPAP HYPOTHYROIDISM -continue Synthroid ANXIETY/DEPRESSION -continue Prestiq, Wellbutrin -Klonopin prn H/O MRSA -contact precautions -repeat MRSA nasal swab pending GERD -continue Nexium DVT PROPHYLAXIS: Sq lovenox CODE STATUS: FULL CODE DISPO:In my clinical judgment this beneficiary meets acute admission criteria, established by [facility], that includes being hospitalized through two midnights. Patient seen in collaboration with Dr. Kendall VTE Prophylaxis VTE Risk Assessment Done? Y/N: Yes Risk Level: Moderate Note ATTENDING ADDENDUM Record reviewed. Patient interviewed and examined. Care coordinated with Rosa Darnell PA-C. Please refer to her documentation for patient's history. Briefly, 70 YO female who suffered dog bite to right forearm yesterday. She was seen in an acute care facility, prescribed doxycycline, and given a tetanus booster. Increasing pain and swelling of right forearm today with purulent drainage from puncture site. No fever, chills. EXAM: General- no distress VS- as noted Extremities- puncture wound right forearm with purulent drainage; swelling and erythema of forearm, no proximal lymphangitis spread DATA: WBC 9260. Other lab studies as noted. X-ray right forearm- soft tissue swelling, no foreign body. US right forearm- no abscess. ASSESSMENT AND PLAN: Cellulitis right upper extremity secondary to dog bite. History of MRSA (nasal colonization). History of GI intolerance to amoxicillin / clavulanate. Does not appear to be septic. No apparent abscess or foreign body. Rx with IV daptomycin and ampicillin / sulbactam pending cultures results. Consult ID. Consider oral suspension when transitioning to oral antibiotic therapy due to history of hiatal hernia, s/p fundoplication. Please refer to CHRISTOPHER Darnell's documentation for discussion of other issues. Richie Kendall MD . Physical Exam (per Admitting): General Appearance: + pertinent finding (Pleasant WD/WN 70 year old female lying in bed in NAD with daughter at bedside ) Head: normocephalic, atraumatic Eyes: PERRL, EOMI, sclerae normal ENT: hearing grossly normal, pharynx normal Neck: supple, no JVD Respiratory/Chest: chest non-tender, lungs clear, normal breath sounds, no respiratory distress, no accessory muscle use Cardiovascular: regular rate, rhythm, no edema, no gallop, no JVD, normal peripheral pulses, + systolic murmur Abdomen/GI: normal bowel sounds, non tender, soft Back: normal inspection, no muscle spasm Extremities/Musculoskelatal: no calf tenderness, normal capillary refill, no pedal edema Neurologic/Psych: alert, oriented x 3, + pertinent finding (no motor or sensory deficits noted on gross exam ) Skin: + pertinent finding (Erythema, and mild edema to right medial aspect of the forearm extending from wrist to elbow but not crossing joints, one puncture wound with scant purulent discharge ) Lymphatic: no adenopathy Hospital Course RIGHT FOREARM CELLULITIS SECONDARY TO DOG BITE -No signs of sepsis, afebrile, no leukocytosis -Dog is Immunized -Patient received Tetanus shot at Urgent Care yesterday -Does have h/o + MRSA swab -MRSA screen is positive -US -no abscess -Was started on Unasyn in ED for P. multocida coverage, will change to Daptomycin to cover for MRSA as well. 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 -continue current medications -Await ID input for possible transition to oral -Draining small amount of Puss from the wound -Induration of the adjoining area but no fluctuation IRON DEFICIENCY ANEMIA -secondary to Colon CA -Hgb 10.5 per family better than it had been COLON CANCER -Scheduled for resection at [facility] on 06/30 HLD -hold statin while on Daptomycin HTN -stable -continue Amlodipine LUIZA -continue CPAP -no acute issue HYPOTHYROIDISM -continue Synthroid ANXIETY/DEPRESSION -continue Prestiq, Wellbutrin -Klonopin prn -no acute issue GERD -continue Nexium DVT PROPHYLAXIS: Sq lovenox CODE STATUS: FULL CODE DISPO: Await culture sensitivity will discuss with the ID fro possible oral transition today Total time spent on discharge = 35 minutes This includes examination of the patient, discharge planning, medication reconciliation, and communication with other providers. Discharge Instructions Admission Reason for Admission: Cellulitis,Dog Bite Discharge Discharge Diagnosis / Problem: Cellulitis right Forearm,Dogbite Discharge Goals Goal(s): Prevent Disease Progression Activity Recommendations Activity Limitations: resume your previous activity . Instructions / Follow-Up Instructions / Follow-Up Please make an appointment with your PCP in 1 week. Current Hospital Diet Patient's current hospital diet: AHA Diet (Heart Healthy) Discharge Diet Recommended Diet: Regular Diet Pending Studies Studies pending at discharge: no Medical Emergencies . Who to Call and When: Medical Emergencies: If at any time you feel your situation is an emergency, please call 911 immediately. . Non-Emergent Contact Non-Emergency issues call your: Primary Care Provider . . "Provider Documentation" section prepared by Bam Mitchell. VTE Core Measure Inpt VTE Proph given/why not?: Enoxaparin (Lovenox)SQ <Electronically signed by Bam Mitchell M.D.> Additional Copies To Jaodn Hutson M.D.
[2016-06-17] MEDS ORDERED: DOXYCYCLINE HYCLATE 100 MG CAP PO ONE (10:30)
[2016-06-17 10:37] VITALS: BP 120/70; PULSE 83; TEMP 36.4; O2SAT 95
[2016-06-17] MEDS ORDERED: DOXYCYCLINE HYCLATE 100 MG CAP PO SCH (21:00)
== END 2016-06-17 12:04 | disposition home or self-care (01) | DRG 603 ==
LOC: ENRESERVDT → ENRESERVTM → C.EDB 16:44 → UNDOADMIN 18:04 → C.MS2W 18:04 → EDBEDREQ 18:50
PROVIDERS: ADMIT Hospitalist; ATTEND Internal Medicine
DX: L03.113 Cellulitis of right upper limb (principal); C18.9 Malignant neoplasm of colon, unspecified; E03.9 Hypothyroidism, unspecified; G47.33 Obstructive sleep apnea (adult) (pediatric); E78.5 Hyperlipidemia, unspecified; D50.9 Iron deficiency anemia, unspecified; K21.9 Gastro-esophageal reflux disease without esophagitis; B95.62 Methicillin resistant Staphylococcus aureus infection as the cause of diseases classified elsewhere; I10 Essential (primary) hypertension; F32.9 Major depressive disorder, single episode, unspecified; B96.89 Other specified bacterial agents as the cause of diseases classified elsewhere; F41.9 Anxiety disorder, unspecified; W54.0XXA Bitten by dog, initial encounter; X58.XXXA Exposure to other specified factors, initial encounter; K44.9 Diaphragmatic hernia without obstruction or gangrene; R01.1 Cardiac murmur, unspecified; Z99.89 Dependence on other enabling machines and devices; Z79.899 Other long term (current) drug therapy

== ENCOUNTER → 2016-07-30 | Outpatient (CLI) | payer OTHER ==
[~2016-07-30] MED LIST changes: -ATR10 PO; -FERR1TAB23 PO
--- NOTE | 2016-07-30 13:55 | DIAGNOSTIC IMAGING REPORT ---
NUCLEAR GASTRIC EMPTYING STUDY CLINICAL HISTORY: Hiatal hernia. COMPARISON STUDY: Fluoroscopic upper GI assessment dated 05/16/2016. TECHNIQUE: Following the oral administration of 1.0 mCi of technetium 99m sulfur colloid in egg sandwich and 8 ounces of water, static abdominal images are obtained anteriorly and posteriorly at 0 minutes, 1 hour, 2 hour, and 4 hour time intervals. Gastric emptying was calculated utilizing the geometric mean method. FINDINGS: There is approximately 56% activity remaining at the 1 hour time interval, 13 % remaining at the 2 hour time interval (normal is less than 60%), and 0% activity remaining at the 4 hour time interval (normal is less than 10%). IMPRESSION: Findings are consistent with normal gastric emptying for solids. Electronically signed by: Harrison Steel M.D. 07/30/2016 1:53 PM Dictated Date/Time: 07/30/2016 1:52 PM
== END | disposition home or self-care (01) ==
LOC: C.NUCL 08:57
PROVIDERS: ATTEND Surgery
DX: K44.9 Diaphragmatic hernia without obstruction or gangrene (principal)

== ENCOUNTER → 2017-07-06 | Outpatient (CLI) | payer OTHER ==
[~2017-07-06] MED LIST changes: -LCTX PO
--- NOTE | 2017-07-06 12:40 | DIAGNOSTIC IMAGING REPORT ---
GI SERIES W/O KUB CLINICAL HISTORY: 71 years-old Female presenting with S/P REPAIR OF PARAESOPHAGEAL HERNIA. TECHNIQUE: A standard air contrast barium esophagram is performed. Multiple spot images of the esophagus are acquired both upright and prone. COMPARISON: 05/16/2016. FINDINGS: The patient was able to ingest barium and the barium pill without difficulty. Normal esophageal mucosal pattern. No evidence of intrinsic or extrinsic mass lesion. No aspiration observed. The gastric antrum demonstrated either luminal debris or thickening of gastric folds. The gastroesophageal junction distended normally. No gastroesophageal reflux could be elicited despite provocative maneuvers. Fluoroscopy dosage (mGy): Not available. Fluoroscopy time: 2.6 minutes. Number of fluoroscopic spot images: 15. IMPRESSION: 1. The gastric antrum demonstrated either luminal debris or thickening of gastric folds. The patient reported being n.p.o. as the study prescribed. Other differential considerations include gastroparesis as a cause for delayed emptying, though this was not seen on prior gastric imaging study from 07/30/2016. 2. No evidence of recurrent hernia. Electronically signed by: Paulino Nelson M.D. 07/06/2017 12:38 PM Dictated Date/Time: 07/06/2017 12:34 PM
== END | disposition home or self-care (01) ==
LOC: C.RAD 07-01 09:58
PROVIDERS: ATTEND Surgery
DX: R93.5 Abnormal findings on diagnostic imaging of other abdominal regions, including retroperitoneum (principal); Z98.890 Other specified postprocedural states; Z87.19 Personal history of other diseases of the digestive system